=== PATIENT | female | born 1985 | race Caucasian/White ===

== ENCOUNTER → 2016-08-29 | Outpatient (CLI) | payer BC ==
--- NOTE | 2016-08-29 13:55 | CT ---
EXAM DESCRIPTION: Abdomen/Pelvis w/Contrast CLINICAL HISTORY: abdomen mass COMPARISON: Images without report from ultrasound dated February 11, 2010 TECHNIQUE: Postcontrast CT images of the abdomen and pelvis are obtained. This exam was performed according to our departmental dose-optimization program, which includes automated exposure control, adjustment of the mA and/or kV according to patient size and/or use of iterative reconstruction technique . FINDINGS: The visualized lung bases are unremarkable. Liver, spleen, pancreas, adrenal glands, gallbladder, and abdominal vasculature are unremarkable. Kidneys are unremarkable. No hydronephrosis. Urinary bladder is contracted and unremarkable. The uterus is somewhat deviated towards the left. There is a thick-walled low attenuation mass in the region of the right adnexa measuring at least 10.5 x 6.0 cm. There is a mildly thickened septation in the lower inferior portion of the lesion. Solid soft tissue component is seen. There is what appears to be a second low attenuation mass in the left adnexa with peripheral thick powell as well measuring 7.1 x 7.0 cm. Small thick-walled internal cyst or septation the lateral aspect of the lesion measures 2.9 x 1.5 cm. Hounsfield units are between 20 and 30. The appendix is partly visualized and appears unremarkable. No bowel obstruction is seen. Colon is somewhat decompressed. No pathologically enlarged abdominal or retroperitoneal lymphadenopathy is seen. Osseous structures show no aggressive bony lesions IMPRESSION: Scan shows enlargement of both ovaries with low-attenuation masses occupying most of the ovary bilaterally. There are some septations partly thickened identified in these lesions. Recommend further evaluation with pelvic ultrasound for better characterization of these lesions . No CT evidence of significant ascites or pathologic lymphadenopathy. Urinary bladder is partly compressed by these adnexal lesions. Electronically signed by: Elías Vernon MD 08/29/2016 1:52 PM CDT
== END | disposition home or self-care (01) ==
LOC: CT 12:53
PROVIDERS: ATTEND Nurse Practitioner
DX: R19.07 Generalized intra-abdominal and pelvic swelling, mass and lump (principal)